=== PATIENT | female | born 1935 | race Caucasian/White ===

== ENCOUNTER 2024-03-12 01:57 | Day surgery (SDC) | payer MEDICARE, BC, SELFPAY ==
[2024-02-24 14:44] VITALS: BMI 25.8
--- NOTE | 2024-03-12 09:04 | P.PNAN_ITS ---
Anes - Initial Pre Proc Eval Procedure: Operation Date: 03/12/24 11:30 Proposed Procedures p Esophagogastroduodenoscopy - Carroll Augustin MD Date/Time: 03/12/24 09:04 Surgeon: Carroll Augustin MD Pre Op Diagnosis: Dysphagia unspecified Patient Data Age: 89 Gender: F Height: 1.52 m Weight: 60 kg Allergies Allergy/AdvReac Type Severity Reaction Status Date / Time No Known Allergies Allergy Verified 03/12/24 10:16 Home Medications Medication Instructions Recorded Confirmed Type aspirin 81 mg chewable tablet 81 mg PO DAILY 02/24/24 02/24/24 History bimatoprost 0.01 % eye drops 1 drp EACH EYE HS 02/24/24 02/24/24 History ([place]) ergocalciferol (vitamin D2) 1,250 50,000 unit PO MONTHLY 02/24/24 02/24/24 History mcg (50,000 unit) capsule ezetimibe 10 mg tablet 10 mg PO DAILY 02/24/24 02/24/24 History losartan 50 mg tablet 50 mg PO DAILY 02/24/24 02/24/24 History nebivolol 10 mg tablet 10 mg PO DAILY 02/24/24 03/12/24 History pantoprazole 40 mg tablet,delayed 40 mg PO DAILY 02/24/24 03/12/24 History release vitamin E (dl, acetate) 180 mg 180 mg PO DAILY 02/24/24 02/24/24 History (400 unit) capsule Patient hx anesthesia problems: none Family hx anesthesia problems: none Results Review: All pre-operative results and documents have been reviewed as part of the pre- operative evaluation. [facility] Past Medical History Medical History (Updated 03/12/24 @ 09:05 by Karri Alberto DO) Endometriosis GERD (gastroesophageal reflux disease) Glaucoma Hiatal hernia Hyperlipidemia Hypertension Surgical History Surgical History (Updated 03/12/24 @ 09:05 by Karri Alberto DO) History of hysterectomy Social History Social History Smoking status: Former smoker Tobacco type: cigarettes Alcohol intake: current Substance use: never Substance use type: does not use Living arrangements: alone Spiritual care concerns: No Anes - Eval Final PreProcedure Day of Procedure 03/12/24 09:04 Patient weight: overweight Heart: regular rate and rhythm Lungs: clear to auscultation Airway: Mallampati scale class II and special considerations poor dentition Neurological: alert and oriented Last oral intake: >/= 8 hours ASA classification: III Emergent: no Anesthetic plan: proceed Anesthesia type and monitoring: general GIVS and standard monitoring Results Review: All pre-operative results and documents have been reviewed as part of the pre- operative evaluation. Informed Consent: The patient's anesthetic plan and its attendant risks and benefits were discussed with the patient/family/POA. Questions were solicited and answers provided to the satisfaction of the patient/family/POA.
[2024-03-12 10:17] VITALS: BP 176/66; PULSE 66; RESP 20; TEMP 36.2; O2SAT 99
[2024-03-12] MEDS: LACTATED RINGERS 1,000 ML 150 ML IV CONT (10:31)
--- NOTE | 2024-03-12 11:24 | PM.HPGS ---
History of Present Illness History of Present Illness Consent: Risks, benefits, and alternatives have been discussed and questions answered. Patient agrees to proceed with procedure. Chief complaint: Dysphagia unspecified Narrative: Abimbola Seals is a 89 year old female with gerd on pantoprazole, also non cardiac chest pain, EGD about 10 years ago Review of Systems Review of Systems: All systems reviewed & are unremarkable except as noted in HPI and below PMFSH Past Medical History Medical History (Updated 03/12/24 @ 11:25 by Carroll Augustin MD) Endometriosis GERD (gastroesophageal reflux disease) Glaucoma Hiatal hernia Hyperlipidemia Hypertension Surgical History Surgical History (Updated 03/12/24 @ 09:05 by Karri Alberto DO) History of hysterectomy Social History Social History Smoking status: Former smoker Tobacco type: cigarettes Alcohol intake: current Substance use: never Substance use type: does not use Living arrangements: alone Spiritual care concerns: No Meds Home Medications and Allergies Home Medications Medication Instructions Recorded Confirmed Type aspirin 81 mg chewable tablet 81 mg PO DAILY 02/24/24 02/24/24 History bimatoprost 0.01 % eye drops 1 drp EACH EYE HS 02/24/24 02/24/24 History ([place]) ergocalciferol (vitamin D2) 1,250 50,000 unit PO MONTHLY 02/24/24 02/24/24 History mcg (50,000 unit) capsule ezetimibe 10 mg tablet 10 mg PO DAILY 02/24/24 02/24/24 History losartan 50 mg tablet 50 mg PO DAILY 02/24/24 02/24/24 History nebivolol 10 mg tablet 10 mg PO DAILY 02/24/24 03/12/24 History pantoprazole 40 mg tablet,delayed 40 mg PO DAILY 02/24/24 03/12/24 History release vitamin E (dl, acetate) 180 mg 180 mg PO DAILY 02/24/24 02/24/24 History (400 unit) capsule Allergies Allergy/AdvReac Type Severity Reaction Status Date / Time No Known Allergies Allergy Verified 03/12/24 10:16 Vital Signs Vital Signs - 24 hr 03/12/24 10:17 Temperature 97.1 F L Pulse Rate 66 Respiratory Rate 20 Blood Pressure 176/66 H Pulse Oximetry 99 Oxygen Delivery Room Air Exam Const: General: comfortable and no acute distress HENMT: Face/Nose/Sinus: Normal nares present Eyes: General: appearance normal, both eyes and all related structures Neck: Neck: no JVD Resp: Auscultation: clear to auscultation bilaterally Cardio: Rate: regular rate Rhythm: regular rhythm GI: Inspection: non-distended GI Palp: Yes Soft to palpation Skin: General skin exam: normal color Neuro: General: gait normal Speech: normal speech Extrem: General: normal to inspection Psych: Mental Status: mental status grossly normal Assessment and Plan Assessment and plan (1) GERD (gastroesophageal reflux disease): Code(s): K21.9 - Gastro-esophageal reflux disease without esophagitis Status: Acute Assessment and Plan: egd with bx
[2024-03-12 11:40] VITALS: BP 142/54; PULSE 72; RESP 24; O2SAT 100
[2024-03-12 11:50] VITALS: BP 153/61; PULSE 62; RESP 21; O2SAT 100
[2024-03-12 12:00] VITALS: BP 158/68; PULSE 68; RESP 23; O2SAT 99
== END 2024-03-12 12:09 | disposition home or self-care (01) ==
PROVIDERS: PCP Internal Medicine; Visit Provider Internal Medicine Gastroenterology
PROC: 0DJ08ZZ Inspection of Upper Intestinal Tract, Via Natural or Artificial Opening Endoscopic (ICD-10-PCS; CPT 43235; principal; 2024-03-12 11:30)
DX: K44.9 Diaphragmatic hernia without obstruction or gangrene (principal); K21.9 Gastro-esophageal reflux disease without esophagitis; Z79.82 Long term (current) use of aspirin; I10 Essential (primary) hypertension; E78.5 Hyperlipidemia, unspecified; H40.9 Unspecified glaucoma; Z87.891 Personal history of nicotine dependence
CPT/HCPCS: 43239; 88305; J2001; J2704; J7120

== ENCOUNTER 2024-04-09 11:26 | Outpatient (CLI) | payer MEDICARE, BC, SELFPAY ==
--- NOTE | ~2024-04-09 | XR_ITS ---
Right Knee Technique: AP, lateral, and sunrise views were obtained. Clinical History: Pain Findings: No fracture or dislocation is seen. Osseous alignment is anatomic. There is moderate tricom partmental degenerative spurring. Soft tissues are unremarkable. No joint effusion is seen. Impression: Moderate tricompartmental degenerative spurring. Reviewed, dictated and finalized at [facility] [place]. Impression: Moderate tricompartmental degenerative spurring.
== END 2024-04-09 11:27 | disposition home or self-care (01) ==
PROVIDERS: PCP Internal Medicine; Visit Provider Internal Medicine
DX: M17.11 Unilateral primary osteoarthritis, right knee (principal)
CPT/HCPCS: 73562

== ENCOUNTER 2024-04-13 10:43 | Outpatient (CLI) | payer MEDICARE, BC, SELFPAY ==
--- NOTE | ~2024-04-13 | US_ITS ---
Limited Abdominal Sonogram: Real-time sonographic imaging of the right upper quadrant was performed. Clinical History: Epigastric pain Findings: The liver appears normal with no evidence of mass lesion or bile duct dilatation. Main por solomon vein demonstrates normal direction of flow. The gallbladder is well distended, and contains multi ple echogenic gallstones. No gallbladder wall thickening. The common bile duct measures 3 mm. The vi sualized pancreas, aorta, and IVC are unremarkable. Impression: Cholelithiasis. Reviewed, dictated and finalized at location M. Impression: Cholelithiasis.
== END 2024-04-13 10:44 | disposition home or self-care (01) ==
PROVIDERS: PCP Internal Medicine; Visit Provider Internal Medicine
DX: R10.13 Epigastric pain (principal); K80.20 Calculus of gallbladder without cholecystitis without obstruction
CPT/HCPCS: 76705

== ENCOUNTER 2024-05-11 07:34 | Outpatient (CLI) | payer MEDICARE, BC, SELFPAY ==
--- NOTE | 2024-05-11 | EST_ITS ---
Patient Info Name: Abimbola Christian Bozena Age: 89 years : 1935 Gender: Female Ht: 60 in Wt: 125 lbs BSA: 1.56 m2 Exam Date: 05/11/2024 8:29 AM Exam Location: Echo Lab Patient Status: Outpatient Admit Date: 05/11/2024 Staff Ordering Physician: Ramana, Juan Carlos IVEY Attending Provider: Ramana, Juan Carlos IVEY Exercise Technologist: [facility] Exercise Physician: Meir Montenegro DO Exam Type: CA stress filemon w NM Study Info Indications Z01.818 - Encounter for other preprocedural examination R07.9 - Chest pain, unspecified A regadenoson stress test was performed. Summary 1. 1. Negative lexiscan stress test for ischemic ST changes by ECG criteria. 2. 2. Baseline hypertension. 3. 3. Nuclear scan to follow and will be reported separately. Please correlate with it. 4. 4. Patient informed of the above results. Protocol: Lexiscan Stress ECG Details Stage: REST Duration (min): 3 min : 19 sec HR (bpm): 66 SBP (mmHg): 200 DBP (mmHg): 87 Stage: REST Duration (min): 7 min : 33 sec HR (bpm): 76 SBP (mmHg): 197 DBP (mmHg): 72 Stage: STAGE 1 Duration (min): 0 min : 59 sec HR (bpm): 98 SBP (mmHg): 193 DBP (mmHg): 66 Stage: RECOVERY Duration (min): 1 min : 0 sec HR (bpm): 97 SBP (mmHg): 193 DBP (mmHg): 66 Stage: RECOVERY Duration (min): 2 min : 0 sec HR (bpm): 86 SBP (mmHg): 193 DBP (mmHg): 66 Stage: RECOVERY Duration (min): 3 min : 0 sec HR (bpm): 83 SBP (mmHg): 174 DBP (mmHg): 76 Stage: RECOVERY Duration (min): 3 min : 18 sec HR (bpm): 82 SBP (mmHg): 174 DBP (mmHg): 76 Rest HR: 76 bpm Peak HR: 107 bpm Rest Sys BP: 197 mmHg Peak Sys BP: 193 mmHg Max Pred HR: 131 bpm % Max Pred HR: 82 % Target HR: 111 bpm Max RPP: 20,651 bpm*mmHg Termination Reason: Completed protocol Cardiac Symptoms: Shortness of breath Total Time: 1 min : 0 sec Rest Puckett BP: 72 mmHg Peak Puckett BP: 66 mmHg Total Dose: 0.4 mg Resting ECG Sinus rhythm. Stress ECG No ST changes. Arrhythmias None. Report Signatures
--- NOTE | ~2024-05-11 | NM_ITS ---
EXAMINATION: NM filemon stress w perfusion DATE: 05/11/2024 10:30 INDICATION: Chest pain. TECHNIQUE: Rest images were obtained following intravenous administration of 9.5 mCi Tc99m tetrofosmi n (Myoview). The patient was infused intravenously with Lexiscan (regadenoson). Then, 32.3 mCi Tc99m tetrofosmin (Myoview) was administered intravenously, and stress images were obtained. Data was recon structed into short axis and horizontal and vertical long axis SPECT images. Gated SPECT images were also obtained. COMPARISON: None. FINDINGS: There is no definite reversible or fixed perfusion abnormality to suggest ischemia or infar ction. There is no segmental wall motion abnormality. Left ventricular ejection fraction measures > 70%. IMPRESSION: 1. No definite ischemia or infarct. 2. Normal left ventricular ejection fraction measuring >70%. Reviewed, dictated and finalized at location A.
== END 2024-05-11 07:35 | disposition home or self-care (01) ==
PROVIDERS: PCP Internal Medicine; Visit Provider Internal Medicine
DX: R07.9 Chest pain, unspecified (principal)
CPT/HCPCS: 78452; 93017; A9502; J2785

== ENCOUNTER 2024-05-18 09:25 | Outpatient (CLI) | payer MEDICARE, BC, SELFPAY ==
--- NOTE | ~2024-05-18 | CT_ITS ---
EXAMINATION: CT abdomen pelvis w con DATE: 05/18/2024 10:12 INDICATION: Abdominal pain. TECHNIQUE: Computed tomography (CT) of the abdomen and pelvis was performed with 100 mL Omnipaque 350 intravenous contrast. Automated exposure control and iterative reconstruction technique were employe d. The dose-length product was 382.31 mGy-cm. COMPARISON: None. FINDINGS: The visualized portions of the lung bases demonstrate mild atelectasis. No pleural effusion . There is left atrial enlargement of the heart. There are coronary artery calcifications. No pericar dial effusion. The liver, gallbladder, spleen, pancreas, and adrenal glands are normal. There is rayray ical thinning of the kidneys. There are cysts in the kidneys measuring up to 6 mm on the left. There is calcified atherosclerosis of the aorta and many of the other arteries. Stool distends the rectum. There is diverticulosis of the colon without evidence of diverticulitis. The appendix is not visualiz ed. There are no pathologically enlarged lymph nodes. There is no free intraperitoneal fluid. There i s lumbar levoscoliosis. There is severe thoracic and lumbar spondylosis. IMPRESSION: 1. Stool distends the rectum. Reviewed, dictated and finalized at location A.
[2024-05-18 09:59] LABS: Estimated Glomerular Filt Rate > 60
== END 2024-05-18 09:26 | disposition home or self-care (01) ==
PROVIDERS: PCP Internal Medicine; Visit Provider Internal Medicine
DX: R10.9 Unspecified abdominal pain (principal)
CPT/HCPCS: 74177; Q9967

== ENCOUNTER 2024-10-04 14:04 | Outpatient (CLI) | payer MEDICARE, BC, SELFPAY ==
--- NOTE | ~2024-10-04 | DEXA_ITS ---
Bone Density Report Name: KINMAYNOR HOFFMAN Age: 89 Sex: Female Ethnicity: White Date of : 1935 Indication: postmenopausal; screening for osteoporosis; parental hip fracture; height loss; hysterectomy; Referring Provider: ARYA CONWAY Study: Bone densitometry was performed. Exam Date: October 04, 2024 Accession number: [id number] Bone Density: Region BMD T-score Z-score Classification AP Spine(L1-L4) 1.167 1.1 4.0 Normal Femoral Neck (Left) 0.656 -1.7 0.8 Osteopenia Total Hip (Left) 0.784 -1.3 1.0 Osteopenia Femoral Neck (Right) 0.599 -2.3 0.3 Osteopenia Total Hip (Right) 0.763 -1.5 0.9 Osteopenia Total Hip Mean 0.774 -1.4 1.0 Osteopenia World Health Organization criteria for BMD impression classify patients as: Normal (T-score at or above -1.0), Osteopenia (T-score between -1.0 and -2.5), or Osteoporosis (T-score at or below -2.5). 10-year Fracture Risk(1): Major Osteoporotic Fracture 27% Hip Fracture 19% Reported Risk Factors: [place] (), Neck BMD=0.599, BMI=24.1, parental fracture (1) FRAX(R) Version 3.08. Fracture probability calculated for an untreated patient. Fracture probability may be lower if the patient has received treatment. Clinical Information Provided by Patient: Parent has had a hip fracture Has used the following medications: Vitamin D Has the following medical conditions: Hysterectomy Patient maximum height was 63.0 No regular weight bearing exercise Does not regularly consume dairy products Drinks caffeinated beverages Onset of menses at age 12 Number of children 1 Impression: The patient has low bone mass, based on the Right Femoral Neck T-score. The patient has an estimated ten-year risk of hip fracture of 19% and an estimated ten-year risk of major fracture of 27%, based on the WHO FRAX algorithm. The patient has risk factors, including: parental hip fracture. Discussion: BONE DENSITY IS LOW AT ONE OR MORE SKELETAL SITES. THE PATIENT'S BMD AND CLINICAL RISK FACTORS CONTRIBUTE TO THIS PATIENT'S HIGH RISK OF FRACTURE. This patient's lowest T-score is low at one or more skeletal sites. It meets the World Health Organization's (WHO) criteria for ?low bone mass? (T-score between -1.0 and -2.5). The patient's 10-year risk of hip fracture and 10 year risk of a major osteoporotic fracture as calculated by FRAX exceeds the threshold where pharmacological therapy is recommended by the National Osteoporosis Foundation (NOF). However, all treatment decisions require clinical judgment and consideration of individual patient factors, including patient preferences, comorbidities, previous drug use, risk factors not captured in the FRAX model (e.g., frailty, falls, vitamin D deficiency, increased bone turnover, interval significant decline in bone density) and possible under or overestimation of fracture risk by FRAX. The patient should follow a healthful lifestyle (good nutrition with adequate calcium and vitamin D, and appropriate weight-bearing exercise). Follow-Up: Consider a repeat BMD and Vertebral Fracture Assessment (VFA) exam in 2 years or sooner if medically necessary, to reassess this patient's status. Reported by: TAPAN on 10/04/2024 2:46:00 PM. Reviewed, dictated and finalized at location [facility]AR[facility]
== END 2024-10-04 14:05 | disposition home or self-care (01) ==
PROVIDERS: PCP Internal Medicine; Visit Provider Internal Medicine
DX: Z78.0 Asymptomatic menopausal state (principal); M85.852 Other specified disorders of bone density and structure, left thigh; M85.851 Other specified disorders of bone density and structure, right thigh
CPT/HCPCS: 77080